=== PATIENT | male | born 1930 | race Caucasian/White ===

== ENCOUNTER 2019-05-14 13:07 | Emergency (ER) | payer MEDICARE, BC, OTHER ==
--- OUTSIDE RECORDS SUMMARY | 2019-05-14 13:22 | XMS REPORT | Continuity of Care Document ---
:1930 External Reference #:[id number] Author Name Priyank Baum MD (transmitted by agent of provider Alma Rosa Banegas) Address [address] [place] [id number] Problems Active Problems Provider Date Long-term current use of anticoagulant Priyank Baum MD Onset: 10/01/2018 Paroxysmal atrial fibrillation Priyank Baum MD Onset: 10/01/2018 Social History Type Date Description Comments Sex Unknown Tobacco Use Reviewed: 09/25/17 Patient has never smoked Smoking Status Reviewed: 09/25/17 Patient has never smoked Allergies, Adverse Reactions, Alerts Active Allergies Reaction Severity Comments Date Anti Inflammatories 12/19/2012 Medications Active Medications SIG Qnty Indications Ordering Provider Date Ferosul 1 by mouth once Unknown 325(65Fe) mg a week Tablets Warfarin Sodium 5 mg M, W, F 2.5 Unknown 5mg Tablets T, TH, S, Sun Immunizations Description No Information Available Vital Signs Date Vital Result Comment 04/08/2019 1:28pm Height 70 inches 5'10" Weight 163.00 lb BMI (Body Mass Index) 23.4 kg/m2 BP Systolic Left Arm 98 mmHg BP Diastolic Left Arm 62 mmHg Heart Rate 47 /min 10/01/2018 1:54pm Height 70 inches 5'10" Weight 159.00 lb BMI (Body Mass Index) 22.8 kg/m2 BP Systolic Left Arm 110 mmHg BP Diastolic Left Arm 70 mmHg Heart Rate 44 /min reg Results Test Acquired Date Facility Test Result H/L Range Note PT/Inr 04/07/2019 [facility] Normalized 1.7 Ratio PT/Inr 03/10/2019 [facility] Normalized 2.6 Ratio PT/Inr 02/10/2019 [facility] Normalized 2.3 Ratio PT/Inr 01/13/2019 [facility] Normalized 2.1 Ratio PT/Inr 12/29/2018 [facility] Normalized 1.5 Ratio PT/Inr 12/01/2018 [facility] Normalized 2.6 Ratio PT/Inr 11/03/2018 [facility] Normalized 2.3 Ratio PT/Inr 10/20/2018 [facility] Normalized 1.8 Ratio Procedures Date Code Description Status 04/08/2019 68576 Electrocardiogram Complete Completed Medical Devices Description No Information Available Encounters Type Date Location Provider Dx Diagnosis Office Visit 04/08/2019 [facility] Cardiology AT Priyank Baum MD I48.0 Paroxysmal atrial 1:30p [place] fibrillation I44.7 Left bundle-branch block, unspecified I44.0 Atrioventricular block, first degree G30.9 Alzheimer's disease, unspecified K21.9 Gastro-esophageal reflux disease without esophagitis 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 Assessments Date Code Description Provider 04/08/2019 I48.0 Paroxysmal atrial fibrillation Priyank Baum MD 04/08/2019 I44.7 Left bundle-branch block, unspecified Priyank Baum MD 04/08/2019 I44.0 Atrioventricular block, first degree Priyank Baum MD 04/08/2019 G30.9 Alzheimer's disease, unspecified Priyank Baum MD 04/08/2019 K21.9 Gastro-esophageal reflux disease without Priyank Baum MD esophagitis 04/08/2019 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
--- NOTE | 2019-05-14 13:26 | UC ---
Throat Pain/Nasal Nate HPI - HPI Summary HPI Summary: 88yo male presenting with mild left ear and left sided throat discomfort when swallowing that began today. Denies decreased hearing. Denies dizziness. Denies other URI symptoms. Denies cough. Denies sob and wheezing. Denies fever, chills , body aches. Patient states he runs 2 miles every single day, which he did before coming in. Patient states that he would like testing for covid 19 today because his works in a [employer] and has had a cough for the last few weeks. States she did test negative for covid but that he would still like testing. - History of Current Complaint Stated Complaint: ST,LT EAR CONCERN Hx Obtained From: Patient Pain Scale Used: 0-10 Numeric - Allergies/Home Medications Allergies/Adverse Reactions: Allergies Allergy/AdvReac Type Severity Reaction Status Date / Time ? antiinflammatory Allergy ? a-fib? Uncoded 05/14/19 13:22 Home Medications: Home Medications Rivaroxaban TAB(*) [Xarelto 10 mg (*)] 1 tab DAILY 05/14/19 [History Confirmed 05/14/19] PMH/Surg Hx/FS Hx/Imm Hx Previously Healthy: Yes Cardiovascular History: Atrial Fibrillation - Surgical History Surgical History: Yes Surgery Procedure, Year, and Place: tonsils 193; appy appy 1951; cholecystectomy 1972; b/l iguinal hernia 2009; left elbow fx 2008; left patella 1960 then left knee cartilage 2009; left varicocoele; intestinal section 1971,. cardiac cath 08/2012-no changes - Family History Known Family History: Positive: Non-Contributory - Social History Alcohol Use: None Substance Use Type: None Smoking Status (MU): Never Smoked Tobacco - Immunization History Most Recent Tetanus Shot: 2009 Review of Systems All Other Systems Reviewed And Are Negative: Yes Constitutional: Positive: Negative ENT: Positive: Sore Throat - left side, Ear Ache - left ear discomfort Respiratory: Positive: Negative Cardiovascular: Positive: Negative Gastrointestinal: Positive: Negative Musculoskeletal: Positive: Negative Neurological/Mental Status: Positive: Negative Physical Exam - Summary Physical Exam Summary: Vital Signs Reviewed: Yes A+Ox3, no distress, well-appearing, appears younger than stated age Eyes: Conjunctiva Clear ENT: Hearing grossly normal, TM x 2 clear, moist, uvula midline, no exudate, no erythema, no tonsillar swelling Neck: Positive: Supple, no LAD Respiratory: Positive: No respiratory distress, No accessory muscle use + CTA throughout no w/r Cardiovascular: RRR nl s1, s2 no m/r Musculoskeletal Exam: MARTINEZ x 4 without difficulty Neurological: Positive: Alert, + sensation throughout Psychological: Positive: age appropriate behavior Skin: Positive: no rash, no ecchymosis Vital Signs: Vital Signs (72 hours) 05/14/19 14:22 Temperature 97.9 F Pulse Rate 60 Respiratory 16 Rate Blood Pressure 97/70 (mmHg) O2 Sat by Pulse 100 Oximetry Throat Pain/Nasal Course/Dx - Course Course Of Treatment: Patient VS and PE findings WNL. No concern for otitis media. Patient voiced relief of ear and throat discomfort before leaving. Discussed low suspicion for covid 19 but patient still wanted testing done. I informed him that he would receive the covid19 results within the next 3-5 days. I discussed self quarantining until results have been received. Instructed to go to the ED if he experiences shortness of breath/difficulty breathing. Patient voiced understanding and agreed with treatment plan. All questions answered to the best of my abilities. - Differential Dx/Diagnosis Differential Diagnosis/HQI/PQRI: Pharyngitis, URI Provider Diagnosis: Earache on left, Acute sore throat Discharge ED - Sign-Out/Discharge Documenting (check all that apply): Patient Departure All imaging exams completed and their final reports reviewed: No Studies - Discharge Plan Condition: Stable Disposition: HOME Patient Education Materials: Earache (ED) Forms: COVID-19 Tested & Isolation Referrals: Shavon Monique MD [Primary Care Provider] - Additional Instructions: As discussed, there are no signs of an ear or throat infection today. You did receive testing for covid 19 today. You will be notified of these results within 3-5 days. You need to self-quarantine at home until otherwise advised by a healthcare provider. This means staying home and no contact with anyone who lives with you. You should not share your bedroom or bathroom if possible. Food should be left outside your door for you to take once the other person has walked away. Increase your fluid intake. Go to the nearest emergency room or call 911 if you experience any shortness of breath or difficulty breathing. - Billing Disposition and Condition Condition: STABLE Disposition: Home
[2019-05-14 14:22] VITALS: BP 97/70
== END 2019-05-14 14:37 | disposition home or self-care (01) ==
LOC: UCCORT 13:07
DX: H92.02 Otalgia, left ear (principal); J02.9 Acute pharyngitis, unspecified; Z20.828 Contact with and (suspected) exposure to other viral communicable diseases; I48.91 Unspecified atrial fibrillation; Z79.01 Long term (current) use of anticoagulants; Z88.8 Allergy status to other drugs, medicaments and biological substances
CPT/HCPCS: 87635; 99211; G0463